=== PATIENT | male | born 1965 | race Caucasian/White ===

== ENCOUNTER 2021-11-28 06:32 | Day surgery (SDC) | payer OTHER ==
[2021-11-23 14:18] VITALS: BMI 30.4
[2021-11-28] MEDS ORDERED: SODIUM CHLORIDE 0.9% P/F 10 ML VIAL IJ ONE (06:46)
[2021-11-28] MEDS ORDERED: BUPIVACAINE LIPOSOME/PF (EXPAREL) 266 MG/20 ML VIAL ONE (06:46)
[2021-11-28] MEDS ORDERED: MIDAZOLAM HCL 2 MG/2 ML SINGLE DOSE VIAL ONE (06:46)
[2021-11-28] MEDS ORDERED: BUPIVACAINE HCL/PF 0.5% (5MG/ML) 10 ML VIAL ONE (06:46)
[2021-11-28] MEDS ORDERED: VANCOMYCIN 1,000 MG VIAL (RESTRICTED TO ID ONLY) ONE (07:11)
[2021-11-28] MEDS ORDERED: BUPIVACAINE HCL/EPINEPHRINE/PF 30 ML VIAL IJ ONE (07:11)
[2021-11-28] MEDS ORDERED: PROPOFOL 20 ML ONE ×4 (07:21→10:42)
[2021-11-28] MEDS ORDERED: BUPIVACAINE HCL 50 ML ONE (07:25)
[2021-11-28] MEDS ORDERED: ONDANSETRON 4 MG/2 ML VIAL ONE (08:26)
[2021-11-28] MEDS ORDERED: ceFAZolin SODIUM 1 GM VIAL ONE (08:26)
[2021-11-28] MEDS ORDERED: DEXAMETHASONE SOD PHOSPHATE 4 MG/1 ML VIAL ONE (08:26)
[2021-11-28] MEDS ORDERED: TRANEXAMIC ACID 1000 MG/10 ML VIAL ONE (08:26)
[2021-11-28] MEDS ORDERED: ONDANSETRON 4 MG/2 ML VIAL IVPUSH PRN (11:27)
[2021-11-28] MEDS ORDERED: oxyCODONE HCL 5 MG TABLET PO PRN (11:27)
[2021-11-28] MEDS ORDERED: LACTATED RINGERS SOLUTION 1,000 ML IV SCH (11:30)
[2021-11-28 12:23] VITALS: TEMP 96.8
[2021-11-28 12:34] VITALS: BP 104/67; PULSE 77
== END 2021-11-28 13:35 | disposition home or self-care (01) ==
LOC: FASU 06:32
PROVIDERS: ATTEND Orthopaedic Surgery
PROC: 0SQC4ZZ Repair Right Knee Joint, Percutaneous Endoscopic Approach (ICD-10-PCS; 2021-11-28)
PROC: 0QSG04Z Reposition Right Tibia with Internal Fixation Device, Open Approach (ICD-10-PCS; principal; 2021-11-28 08:41)
PROC: 0SBC4ZZ Excision of Right Knee Joint, Percutaneous Endoscopic Approach (ICD-10-PCS; 2021-11-28 08:41)
DX: S83.241A Other tear of medial meniscus, current injury, right knee, initial encounter (principal); M17.11 Unilateral primary osteoarthritis, right knee; X58.XXXA Exposure to other specified factors, initial encounter; Y93.9 Activity, unspecified; Y92.9 Unspecified place or not applicable
CPT/HCPCS: 73560-TC-RT-FY; 94760